=== PATIENT | female | born 1965 | race Caucasian/White ===

== ENCOUNTER → 2019-10-05 09:00 | Outpatient (CLI) | payer OTHER | END | disposition home or self-care (01) | LOC: D.MAMMO 09:00 | PROVIDERS: ATTEND Family Medicine | DX: Z12.31 Encounter for screening mammogram for malignant neoplasm of breast (principal) ==

== ENCOUNTER 2019-10-25 10:00 | Outpatient (CLI) | payer OTHER | END 2019-10-25 11:00 | disposition home or self-care (01) | LOC: D.MAMMO 10:00 | PROVIDERS: ATTEND Family Medicine | DX: R92.8 Other abnormal and inconclusive findings on diagnostic imaging of breast (principal) ==

== ENCOUNTER 2019-10-26 19:00 | Outpatient (CLI) | payer OTHER | END 2019-10-26 23:59 | disposition home or self-care (01) | LOC: D.US 19:00 | PROVIDERS: ATTEND Family Medicine | DX: R92.8 Other abnormal and inconclusive findings on diagnostic imaging of breast (principal) ==